=== PATIENT | male | born 1975 | race Caucasian/White ===

== ENCOUNTER 2016-08-20 21:54 | Emergency (ER) | payer BC ==
[2016-08-20 22:43] VITALS: BP 111/68
--- NOTE | 2016-08-23 11:36 | US ---
INDICATION: Left calf pain, question DVT. DUPLEX ULTRASOUND, LEFT LOWER EXTREMITY VEINS: Utilizing 2-D real time, duplex Doppler spectral analysis, and color flow imaging, examination of the left lower extremity veins was obtained, including the deep venous structures and proximal greater saphenous vein, and excluding the peroneal, since it was not visualized. Exam was obtained 08/20/2016 and compared with 02/16/2013. No evidence of deep venous thrombosis could be identified, with veins easily compressible and showing normal flow. Valvular competence was not evaluated. IMPRESSION: No evidence of deep venous thrombosis. Peroneal veins were not visualized. MTDD
--- NOTE | 2016-08-23 16:01 | ER ---
DATE SEEN: 08/20/2016 HISTORY OF PRESENT ILLNESS: The patient is a 40-year-old gentleman with history of right-sided DVT, presents with left leg swelling that started this afternoon. He says this is mildly painful and swollen. Denies any trauma. Denies any shortness of breath or constitutional symptoms. MEDICATIONS: Aspirin, Tylenol, hydroxyzine, Zoloft, and Prazosin. ALLERGIES: No known drug allergies. PAST MEDICAL HISTORY: Previous DVT and depression. REVIEW OF SYSTEMS: RESPIRATORY: No shortness of breath. PHYSICAL EXAM: VITAL SIGNS: Temperature is 36.8, pulse 56, blood pressure 116/68, respiratory rate 18. GENERAL: No apparent acute distress. LUNGS: Clear to auscultation bilaterally. HEART: Regular rhythm. No rubs, gallops, or murmurs. ABDOMEN: Soft. Minimal tenderness medial belly of the left gastrocnemius muscle. No appreciable swelling or discoloration. Peripheral pulsus are intact. IMAGING: Ultrasound of his left leg was negative for any DVT. ASSESSMENT: Left leg swelling. PLAN: Continue current medications. Follow up with primary care physician if swelling worsens. /[id number] JEROME/ISABEL
== END 2016-08-20 23:40 | disposition home or self-care (01) ==
LOC: FB.ED 21:54
DX: R22.42 Localized swelling, mass and lump, left lower limb (principal); F32.9 Major depressive disorder, single episode, unspecified; Z86.718 Personal history of other venous thrombosis and embolism
CPT/HCPCS: 93926-LT; 93971-LT; 99283

== ENCOUNTER 2017-08-29 18:51 | Emergency (ER) | payer BC ==
[2017-08-29] MEDS ORDERED: cefTRIAXone 1,000 MG VIAL IM ONE (21:14)
--- NOTE | 2017-08-29 23:17 | EDM.PDOC ---
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, had a wider excision 1w ago, now with red and pain x 1d, no f/c/d 3 cc of zamarripa pus was expressed and wound slightly opened with sterile hemostat sutures x 6 were removed - Related Data Allergies Allergy/AdvReac Type Severity Reaction Status Date / Time cats Allergy Other Uncoded 08/29/17 21:03 Home Meds: Home Meds Prazosin [Minpress] 4 mg PO DAILY 02/16/13 [History] Sertraline [Zoloft] 100 mg PO DAILY 02/16/13 [History] Acetaminophen [Tylenol Arthritis] 1 tab PO ASDIRECTED PRN 08/20/16 [History] Aspirin 1 tab PO BEDTIME 08/20/16 [History] Fexofenadine HCl [Oanh Allergy] 1 tab PO BEDTIME 08/20/16 [History] hydrOXYzine Pamoate [Hydroxyzine Pamoate] 1 tab PO TID PRN 08/20/16 [History] Past Medical History Cardiovascular History: Reports: Blood Clots/VTE/DVT Psychiatric History: Reports: Anxiety, PTSD Social & Family History - Family History Family Medical History: Noncontributory - Caffeine Use Caffeine Use: Reports: Coffee ED ROS GENERAL - Review of Systems Review Of Systems: See Below Constitutional: Reports: No Symptoms HEENT: Reports: No Symptoms Respiratory: Reports: No Symptoms Cardiovascular: Reports: No Symptoms Endocrine: Reports: No Symptoms GI/Abdominal: Reports: No Symptoms : Reports: No Symptoms Musculoskeletal: Reports: No Symptoms Skin: Reports: Erythema, Other (pain) Neurological: Reports: No Symptoms Psychiatric: Reports: No Symptoms Hematologic/Lymphatic: Reports: No Symptoms Immunologic: Reports: No Symptoms ED EXAM, SKIN/RASH Exam: See Below Exam Limited By: No Limitations General Appearance: Alert, WD/WN, No Apparent Distress Head: Atraumatic, Normocephalic Neck: Normal Inspection, Supple, Non-Tender, Full Range of Motion Respiratory/Chest: No Respiratory Distress, Lungs Clear, Normal Breath Sounds, No Accessory Muscle Use, Chest Non-Tender Cardiovascular: Regular Rate, Rhythm Neurological: Alert, Oriented, CN II-XII Intact, Normal Cognition, No Motor/ Sensory Deficits Psychiatric: Normal Affect, Normal Mood Location, Skin: Other (L thigh with cental 5 cm linear repaired incision site, suture x 6 removed, 3 cc zamarripa pus expressed, did not appear to be deeper, skin too wet for SS, 4 x 4 and Juvencio wrap used for dressing) Course - Vital Signs Last Recorded V/S: Last Vital Signs Temp 36.8 C 08/29/17 21:00 Pulse 98 08/29/17 21:00 Resp 18 08/29/17 21:00 BP 123/79 08/29/17 21:00 Pulse Ox 96 08/29/17 21:00 - Orders/Labs/Meds Orders: Active Orders 24 hr Category Date Time Status CULTURE BODY FLUID + SMEAR [RM] Stat Lab 08/29/17 23:11 Ordered Meds: Medications Discontinued Medications Generic Name Dose Route Start Last Admin Trade Name Mirtha PRN Reason Stop Dose Admin Ceftriaxone Sodium 1,000 mg 08/29/17 21:14 Rocephin IM 08/29/17 21:15 ONETIME ONE Departure - Departure Time of Disposition: 23:16 Disposition: Home, Self-Care 01 Condition: Good Clinical Impression: Surgical site infection, Subcutaneous abscess - Discharge Information Instructions: Wound Infection, Skin Abscess Referrals: Reynaldo Silva MD [Primary Care Provider] - Additional Instructions: A culture was sent to lab. For infection, take Augmentin 850 mg 1 tab 2 tmes a day for 7 days. For pain, take acetaminophen 500 mg 2 tabs 4 times a day. Return to ED if you have increase in redness, pain, warmth, fever or drainage. See your doctor in 2-3 days. - My Orders Last 24 Hours: My Active Orders 08/29/17 23:11 CULTURE BODY FLUID + SMEAR [RM] Stat - Assessment/Plan Last 24 Hours: My Active Orders 08/29/17 23:11 CULTURE BODY FLUID + SMEAR [RM] Stat
[2017-08-29] MEDS ORDERED: cefTRIAXone 1,000 MG VIAL ONE (23:18)
[2017-08-31 03:27] VITALS: BP 128/81
== END 2017-08-30 00:20 | disposition home or self-care (01) ==
LOC: FB.ED 18:51
DX: T81.4XXA Infection following a procedure, initial encounter (principal); L02.91 Cutaneous abscess, unspecified; Z79.899 Other long term (current) drug therapy; Z79.82 Long term (current) use of aspirin
CPT/HCPCS: 87070; 87077; 87205; 99283; J0696

== ENCOUNTER 2018-08-04 11:46 | Emergency (ER) | payer BC, OTHER ==
[2018-08-04] MEDS ORDERED: Ketorolac 60 MG/2 ML SDV IM ONE (12:20)
--- NOTE | 2018-08-04 12:22 | EDM.PDOC ---
ED HPI GENERAL MEDICAL PROBLEM - General Chief Complaint: Back Pain or Injury Stated Complaint: BACK PAIN Time Seen by Provider: 08/04/18 11:46 Source of Information: Reports: Patient, Family - History of Present Illness INITIAL COMMENTS - FREE TEXT/NARRATIVE: 42 y.o.w.m came with his SO to the ED due to sudden onset of mid lower back pain while sitting in his chair at work. No trauma, no stool or urine incontinences. Pt had a back injury while in the mtilitary yeas ago, Pain is radiating down his right ant thigh, not reaching his right knee. No N/V/D no blod in his urine or stool no other acute med issues. 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 Lower back Pain Score (Numeric/FACES): 10 - Related Data Allergies Allergy/AdvReac Type Severity Reaction Status Date / Time cats Allergy Other Uncoded 08/04/18 11:49 Home Meds: Home Meds Prazosin [Minpress] 4 mg PO BEDTIME 02/16/13 [History] Sertraline [Zoloft] 100 mg PO BEDTIME 02/16/13 [History] Loratadine [Claritin] 10 mg PO DAILY PRN 08/31/17 [History] hydrOXYzine pamoate [Vistaril] 25 mg PO TID PRN 08/31/17 [History] oxyCODONE HCl/Acetaminophen [Oxycodone-Acetaminophen 5-300] 1 each PO DAILY PRN #8 tablet 08/04/18 [Rx] Past Medical History Cardiovascular History: Reports: Blood Clots/VTE/DVT Other Cardiovascular History: Hx DVT post-op after scopes. Respiratory History: Reports: Sleep Apnea Psychiatric History: Reports: Anxiety, PTSD - Past Surgical History HEENT Surgical History: Reports: Tonsillectomy, Other (See Below) Other HEENT Surgeries/Procedures: Partial uvula removed. GI Surgical History: Reports: Cholecystectomy Male Surgical History: Reports: Vasectomy Social & Family History - Family History Family Medical History: Noncontributory - Caffeine Use Caffeine Use: Reports: Coffee ED ROS GENERAL - Review of Systems Review Of Systems: See Below Constitutional: Reports: No Symptoms HEENT: Reports: No Symptoms Respiratory: Reports: No Symptoms Cardiovascular: Reports: No Symptoms Endocrine: Reports: No Symptoms GI/Abdominal: Reports: No Symptoms : Reports: No Symptoms Musculoskeletal: Reports: Back Pain Skin: Reports: No Symptoms Neurological: Reports: No Symptoms Psychiatric: Reports: No Symptoms Hematologic/Lymphatic: Reports: No Symptoms Immunologic: Reports: No Symptoms ED EXAM, UPPER BACK/NECK PAIN - Physical Exam Exam: See Below Exam Limited By: No Limitations General Appearance: Alert, WD/WN, Moderate Distress Eye Exam: Bilateral Eye: Normal Inspection Ears Exam: Normal External Exam, Normal Canal Nose Exam: Normal Inspection, Normal Mucousa, No Blood Throat/Mouth Exam: Normal Inspection, Normal Lips, Normal Voice, No Airway Compromise Head Exam: Atraumatic, Normocephalic Neck Exam: Non-Tender, Full Range of Motion, Normal Alignment, Normal Inspection Cardiovascular/Respiratory: Regular Rate, Rhythm, No M/R/G, Normal Peripheral Pulses GI/Abdominal: Normal Bowel Sounds, Soft, Non-Tender, No Organomegaly, No Abnormal Bruit, No Mass, Pelvis Stable (Male) Exam: Deferred Rectal (Males) Exam: Deferred Back Exam: Normal Inspection, Decreased Range of Motion, Muscle Spasm, Paraspinal Tenderness, Vertebral Tenderness Extremities: Normal Inspection, Normal Range of Motion, Normal Capillary Refill Psychiatric: Normal Affect, Normal Mood Skin Exam: Normal Color, Warm/Dry Lymphatic: No Adenopathy Course - Vital Signs Text/Narrative:: 42 y.o.w.m came with his SO to the ED due to sudden onset of mid lower back pain while sitting in his chair at work. No trauma, no stool or urine incontinences. Pt had a back injury while in the miilitary yeas ago, Pain is radiating down his right ant thigh, not reaching his right knee. No N/V/D no blod in his urine or stool no other acute med issues. BP 136/93 Pulse 64 RR 18 Pulse ox 98% on RA Temp 36.8 PE: WNWD W M with low back pain Labs: UA neg for UTI neg for hematuria Imaging: CT L spine: Possible dis protrisin in L2,3 and 4 MRI L spine was performed, results are pending Impressinon: Disc protrusion L2,3,4, Tx: Toradol, Ice, Dilaudid, Oxycodone Reexam: Improved Plan: D/C with instructions, Pt preferred not to wait for the MRI results Last Recorded V/S: Last Vital Signs Temp 36.5 C 08/04/18 11:46 Pulse 77 08/04/18 16:00 Resp 18 08/04/18 16:00 BP 125/77 08/04/18 16:00 Pulse Ox 94 L 08/04/18 16:00 - Orders/Labs/Meds Orders: Active Orders 24 hr Category Date Time Status Lumbar Spine Comp wo Cont [MR] Stat Exams 08/04/18 13:42 Taken Labs: Laboratory Tests 08/04/18 Range/Units 12:00 Urine Color Yellow (YELLOW) Urine Appearance Clear (CLEAR) Urine pH 5.0 (5.0-6.5) Ur Specific [place] 1.015 (1.010-1.025) Urine Protein Negative (NEGATIVE) mg/dL Urine Glucose (UA) Normal (NORMAL) mg/dL Urine Ketones Negative (NEGATIVE) mg/dL Urine Occult Blood Negative (NEGATIVE) Urine Nitrite Negative (NEGATIVE) Urine Bilirubin Negative (NEGATIVE) Urine Urobilinogen Normal (NEGATIVE) mg/dL Ur Leukocyte Esterase Negative (NEGATIVE) Urine WBC 0-5 (0-5) Ur Squamous Epith Cells Few H (NS,R,O) Urine Bacteria Few H (NS) Meds: Medications Discontinued Medications Generic Name Dose Route Start Last Admin Trade Name Mirtha PRN Reason Stop Dose Admin Hydrocodone Bitart/Acetaminophen 1 tab 08/04/18 12:57 08/04/18 13:05 Hurley 325-5 Mg PO 08/04/18 12:58 1 tab ONETIME ONE Administration Hydromorphone HCl 1 mg 08/04/18 13:33 08/04/18 13:44 Dilaudid IM 08/04/18 13:34 1 mg ONETIME STA Administration Ketorolac Tromethamine 60 mg 08/04/18 12:20 08/04/18 12:42 Toradol IM 08/04/18 12:21 60 mg ONETIME ONE Administration Lorazepam 1 mg 08/04/18 14:31 08/04/18 14:43 Ativan IM 08/04/18 14:32 1 mg ONETIME ONE Administration Departure - Departure Time of Disposition: 15:56 Disposition: Home, Self-Care 01 Condition: Good Clinical Impression: Intervertebral disc protrusion - Discharge Information Prescriptions: oxyCODONE HCl/Acetaminophen [Oxycodone-Acetaminophen 5-300] 1 each PO DAILY PRN #8 tablet PRN Reason: for sevee pain only Instructions: Acetaminophen; Hydrocodone tablets or capsules, Ketorolac injection, Hydromorphone injection, Acute Back Pain, Adult, Lorazepam injection Referrals: Reynaldo Silva MD [Primary Care Provider] - Forms: ED Department Discharge Additional Instructions: Please apply ice to the affected area, please take Motrin for moderate pain, Oxycodone for severe pain only, mayur follow up with your regular MD next week, pending MRI Imaging study results. Please come back if your symptoms get worse acutely. - My Orders Last 24 Hours: My Active Orders 08/04/18 13:42 Lumbar Spine Comp wo Cont [MR] Stat - Assessment/Plan Last 24 Hours: My Active Orders 08/04/18 13:42 Lumbar Spine Comp wo Cont [MR] Stat
[2018-08-04] MEDS ORDERED: Acetaminophen/HYDROcodone 325-5 MG Tab PO ONE (12:57)
[2018-08-04] MEDS ORDERED: HYDROmorphone 2 MG/ML SDV IM STA (13:33)
[2018-08-04] MEDS ORDERED: LORazepam 2 MG/ML SDV IM ONE (14:31)
--- NOTE | 2018-08-04 14:57 | CT ---
INDICATION: Frequent falls but the patient does deny all trauma in x-ray, back pain in lower back with pain going into the right hip and anterior proximal thigh. CT LUMBOSACRAL SPINE WITHOUT CONTRAST: Spiral 2.5 mm axial sections were obtained through the lumbosacral spine with sagittal and coronal reconstructions , as well as angled reconstructions through the disk spaces at L3-4, L4-5, and L5-S1. Total exam DLP = 960.20 mGy-cm. There is mild dextroconcave scoliosis of the lumbar spine. Degenerative changes are noted at the apophyseal joints of L3-4, L4-5, and to a slightly lesser extent L5-S1. There is an appearance of bulging of disk material, not well seen at L3-4 and most likely minimal at L3-4 with the more cranial disk spaces appearing intact. At L4-5 and L5-S1, there appears to be bulging of disk material centrally and to the right. Narrowing of the neural foramina is seen at L3-4, L4-5 and appears most severe on the left at L3-4. There is noted decreased disk space at L4-5. A mild degree of spinal stenosis is produced at L4-5 and L5-S1 to a lesser extent by hypertrophic degenerative changes at the apophyseal joints, which do appear to be more severe at L4-5 and especially on the right. No generalized abnormality of bone density was identified. No focal abnormal bone density was seen. IMPRESSION: Degenerative changes and disk disease lumbosacral spine, as noted above. Some spinal stenosis is seen. MRI may be helpful to confirm impingement on nerve roots. Report was given by phone to Dr. Montero at approximately 1345 hours on 08/04/18. [facility]ICE[facility]isto
[2018-08-04 16:36] VITALS: BP 125/77
== END 2018-08-04 16:20 | disposition home or self-care (01) ==
LOC: FB.ED 11:46
DX: M51.16 Intervertebral disc disorders with radiculopathy, lumbar region (principal); F41.9 Anxiety disorder, unspecified; F43.10 Post-traumatic stress disorder, unspecified; Z79.899 Other long term (current) drug therapy; Z91.09 Other allergy status, other than to drugs and biological substances
CPT/HCPCS: 72131; 72148; 81001; 96372; 99284; A9270; J1170; J1885; J2060